=== PATIENT | male | born 1980 | race Caucasian/White ===

== ENCOUNTER 2016-08-17 09:30 | Day surgery (SDC) | payer OTHER ==
[~2016-08-17] VITALS: Ht 177.8 cm; Wt 83.9 kg
[~2016-08-17 09:30] MED LIST: ESOM40CA53 PO; Lactated Ringer's 1,000 ML IV ONE; OMEP20TA24 PO; RANI150T11 PO
[2016-08-17] MEDS ORDERED: Propofol 10,000 mCg/mL 20 mL Inj ONE ×2 (09:31)
[2016-08-17] MEDS ORDERED: Lidocaine PF 1% 30 mL Inj ONE ×2 (09:31)
[2016-08-17 09:47] VITALS: BP 156/94; PULSE 67; RESP 16; O2SAT 96
[2016-08-17] MEDS ORDERED: Lactated Ringer's 1,000 ML IV SCH (11:24)
--- NOTE | 2016-08-17 11:24 | PCM.HPANE ---
Patient Data Date of Service: Aug 17, 2016 Surgeon Admitting Provider: Attending Provider:Manjit Salinas MD Primary Care Physician:Ashleigh Other Provider:Mario Cueto Anesthesia Reason for Visit Abdominal Pain, Gerd Ht/WT & BMI Height (Feet): 5 Height (Inches): 10 Weight (Kilograms): 83.91 Body Mass Index 26.00 Allergies Coded Allergies: No Known Allergies (Verified Allergy, Unknown, 08/16/16) Past Anesthesia History Anesthesia History: Denies:: Abnormal Airway, Anesthesia Reactions, Difficult Intubation, Fam Anesthesia Reaction, Fam Malignant Hypertherm, Malignant Hyperthermia Diabetes History Hx Diabetes?: No MRSA MRSA: No Medications Hypertension Medication: No Home Meds Incl Beta Jenny: No Reported Medications Esomeprazole Magnesium 40 Mg Capsule.dr40 Mg PO DAILY 08/16/16 Discontinued Reported Medications Ranitidine (Zantac)150 Mg [id number] Mg PO BID 08/16/16 Omeprazole Magnesium (Prilosec Otc)20 Mg Tablet.dr20 Mg PO DAILY #1 PKG Ref 0 08/16/16 History HEENT History: Denies:: Abnormal Airway Difficult Intubation Dysphagia Hearing Problem Hx of Heart Problems?: Yes Cardiovascular History: Positive for:: Hypertension (not medicated) Denies:: AICD Atrial Fibrillation Chest Pain Pacemaker Valvular Heart Disease Hx of Respiratory Problem?: No Hx Neurologic Problems?: No Neurological History: Denies:: CVA Hx of GI Problems?: Yes Gastrointestinal History: Positive for:: Gastroesphageal Reflux Hiatal Hernia Rectal Bleeding Denies:: Cirrhosis Diverticulitis Gall Bladder Disease Liver Disease Hx of Problems?: No HX of Peritoneal Dialysis: No Hx Musculoskeletal Problems?: No Musculoskeletal History: Denies:: Fibromyalgia Joint Replacement Psycho Social History: Positive for:: Anxiety (PTSD) Denies:: Hx Depression Hx Surgeries?: Yes (APPY ) Hx Any Other Health Problems?: No Hx Diabetes: No Hx Alcohol Use: Yes (3 TIMES A WEEK) Stop/Bang Treated for Sleep Apnea?: No S-Snoring: Do You Snore Loudly: Yes T-Tired: feel tired, fatigued: No O-Obsered: Observed not breath: No P-Blood Pressure: treated: Yes B- Body Mass Index > 35 kg/m2: No A- Age over 50: No N- Neck Large Circumference: No G- Gender Male: Yes MELISSA Total Score: 3 MELISSA Risk Assessment: High Risk, =/>3 Yes Risk Assessment Category Category 1A: Patient has history of documented sleep apnea, and HAS NOT received any narcotic, sedative or anesthesia administration during this stay. Category 1B: Patient has history of documented sleep apnea, and HAS received any narcotic , sedative or anesthesia administration during this stay Category 2: Patient has SUSPECTED Obstructive Sleep Apnea, and HAS received any narcotic , sedative or anesthesia administration during this stay. Category 3: Patient has SUSPECTED Obstructive Sleep Apnea and HAS NOT received narcotic, sedative or anesthesia administration during this stay. Category 4: Outpatient in Procedural Areas with known sleep apnea or who screen positive for High Risk via the STOP/BANG questionnaire. Exam Exam Vital Signs Vital Signs Date Time Temp Pulse Resp B/P Pulse Ox O2 Delivery O2 Flow Rate FiO2 08/17/16 09:47 36.5 67 16 156/94 96 Room Air General Appearance: Alert, Oriented X3, Cooperative HEENT/AIRWAY: MP 2, Neck Movement (Full), Mouth Opening (Wide) Lungs: Clear to Auscultation, Normal Air Movement Heart: Regular Rate/Rhythm, Normal S1, Normal S2 Plan Impression Patient chart reviewed, patient interviewed and anesthestic plan with risks, benefits, and alternatives discussed, and informed consent obtained. NPO Status: > 2 hours liquids ASA Physical Status: ASA2 Mod Systemic Disease Anesthetic Plan: MAC Bene/Risks/Altern/Consents: Yes HP Complete Prior to Induction: Yes Angel Mike MD Aug 17, 2016 11:24
[2016-08-17] MEDS ORDERED: Ondansetron 2 mg/mL 2 mL Inj IVPUSH PRN (11:25)
[2016-08-17] MEDS ORDERED: MetoCLOpramide 5 mg/mL 2 mL Inj IVPUSH PRN (11:25)
--- NOTE | 2016-08-17 11:50 | PCM.ENDEGD ---
EGD Date of Service: Aug 17, 2016 Physician Manjit Salinas MD Pre Procedure Diagnosis: Abdominal pain Post Procedure Dx & Findings: Possible Stewart's esophagus gastritis with erosions Procedure Esophagogastroduodenoscopy PROCEDURE IN DETAIL: After proper sedation, Olympus video endoscope was inserted into patient's mouth and esophagus was successfully intubated. Scope introduced esophagus. Esophagus showed normal shiny whitish mucosa consistent with squamous cell component. Z line was not intact at 40 cm cm from the incisors. There was a little over 1 cm length of salmon-colored mucosa protruding from the Z line. 4 quadrant biopsies obtained. No ulcer or mass erosion noted. Scope further advanced to the stomach. Stomach showed normal shiny mucosa with normal appearing rugae folds without any ulcer mass erosion up to the body of the stomach. However in the antrum, there were some streaks of redness and edema and nodular mucosa and in the center of the nodule, minute erosions noted. Biopsies obtained at the nodules and gastritis. Cardia fundus body antrum pylorus were all visualized. Retroflexion was done. Stomach was easily inflated and deflatable using air. Scope further events to the distal duodenum. Duodenum revealed normal villous structures with normal appearing folds without any mass ulcer erosion. Random biopsies 5 obtained for rule out celiac. Impression Possible Stewart's esophagus status post 4 quadrant biopsy length little over a centimeter. Gastritis with erosions. Recommendation Await biopsies Presedation Assessment Risks and Benefits Informed consent was obtained from the patient after all risks and benefits including but not limited to drug reaction, infection, pain, bleeding, perforation, as well as alternatives were discussed. Patient monitoring Continuous pulse oximetry, cardiac monitoring, blood pressure monitoring, IV access, and oxygen at 2L per nasal cannula. Complications There were no periprocedural complications identified. Post Procedure Plan Post Procedure Recommendations 1. Restrict activities today. 2. Resume normal activities in the morning. 3. Resume medications. 4. GERD behavioral modification: - Avoid fatty, acidic, spicy, large meals - Do not lie down after meals - Do not eat or drink anything for at least 2 1/2 hours before going to bed at night - Discontinue tobacco and alcohol - Decrease or avoid caffeine - Avoid chocolate and mints - Decrease weight - Avoid aspirin and non steroidal anti-inflammatory agents (NSAID) such as Aleve, Advil, Mobic, Naproxen, Ibuprofen, etc 5. Add proton pump inhibitor. Take 30 minutes before 1st meal of the day. 6. Patient informed of normal post procedure side effects as bloating, drowsiness, blood streaking in the stool 7. If gastric biopsy reveal H.pylori, continue with appropriate treatment 8. If small bowel biopsy reveals celiac, continue with appropriate treatment 9. Please don't hesitate to call me with any questions Manjit Salinas MD Aug 17, 2016 11:50
--- NOTE | 2016-08-17 12:14 | PCM.ENDCOL ---
Colonoscopy Date of Service: Aug 17, 2016 Physician Manjit Salinas MD Pre Procedure Diagnosis: Abdominal pain Post Procedure Dx & Findings: Terminal ileum erosions Procedure Colonoscopy PROCEDURE IN DETAIL: Prep adequate Withdrawal time 13 minutes After unremarkable rectal examination the Olympus video colonoscope was inserted patient's anal canal and was advanced to cecum. Landmarks were identified including the ileocecal valve and appendiceal orifice. Scope advanced further to the terminal ileum. We advanced 10 cm. Overall, visualized mucosa showed healthy. However, intermittently we saw some redness swelling and central erosion on few spots. These were millimeter in size. But surrounding inflammation was up to 5 mm. Biopsies obtained using forceps. Scope was withdrawn systematically. Visualized colonic mucosa showed healthy shiny mucosa with normal healthy- appearing vasculature. In the rectum retroflexion was done which showed hemorrhoids. Anal canal was inspected carefully on the way out and hemorrhoids noted. Impression Terminal ileum erosions Hemorrhoids Recommendation Await pathology. Patient should go back [facility] the [facility]. If he wishes to follow up with us, these have been referral for GI clinic for workup of abdominal pain. Presedation Assessment Risks and Benefits Informed consent was obtained from the patient after all risks and benefits including but not limited to drug reaction, infection, pain, bleeding, perforation, as well as alternatives were discussed. Patient monitoring Continuous pulse oximetry, cardiac monitoring, blood pressure monitoring, IV access, and oxygen at 2L per nasal cannula. Complications There were no periprocedural complications identified. Post Procedure Plan Post Procedure Recommendations 1. Restrict activities today. 2. Resume normal activities in the morning. 3. Resume medications. 4. Patient informed of normal post procedure side effects as bloating, drowsiness, blood streaking in the stool. 5. average risk CRCS. If colon polyps come back as: -Hyperplastic- can repeat colonoscopy in 10 years -Tubular adenoma- repeat colonoscopy in 5 years -Tubulovillous/villous adenoma- repeat colonoscopy in 3 years -If any dysplasia- return to clinic as soon as possible 6. Please don't hesitate to call me with any questions. Manjit Salinas MD Aug 17, 2016 12:14
[2016-08-17 12:15] VITALS: BP 131/79; PULSE 88; RESP 14; O2SAT 95
--- NOTE | 2016-08-17 12:22 | PCM.ANEP1 ---
Post Anesthesia Phase 1 PACU Phase 1 Assessment Date of Service: Aug 17, 2016 Vital Signs Vital Signs Date Time Temp Pulse Resp B/P Pulse Ox O2 Delivery O2 Flow Rate FiO2 08/17/16 12:15 36.4 88 14 131/79 95 Room Air 08/17/16 09:47 36.5 67 16 156/94 96 Room Air Anesthetic Administered: MAC Level of Alertness: Sleeping, hard to arouse LLANOS's with Equal Strength: Yes Pain: No Nausea or Vomiting: No Lungs: Normal Air Movement Angel Mike MD Aug 17, 2016 12:22
[2016-08-17 12:25] VITALS: BP 162/103; PULSE 86; RESP 14; O2SAT 98
[2016-08-17 12:35] VITALS: BP 168/109; PULSE 85; RESP 16; O2SAT 100
--- NOTE | 2016-08-17 12:53 | PCM.ANEP2 ---
Post Anesthesia Evaluation ASA/CMS Post Anesthesia Date of Service: Aug 17, 2016 VS in Patient's Normal Range?: Yes Resp Stable; Airway Patent?: Yes CV Function & Hydration Stable: Yes Mental Status Recovered?: Yes Pain control Satisfactory?: Yes N/V Control Satisfactory?: Yes Angel Mike MD Aug 17, 2016 12:53
--- NOTE | 2016-08-18 15:51 | PATH ---
SURGICAL PATHOLOGY Attending Physician:Manjit Sailnas M.D. CASE STATUS: Signed Out PATIENT NAME: FLOYD GAINES PID: [id number] : 1980 DATE COLLECTED:08/17/2016 21:50 SPECIMEN: 1: Duodenum, Biopsy 2: Gastric, Biopsy 3: Esophagus, Biopsy 4: Ileum, Biopsy CLINICAL HISTORY: 1). DUODENAL BIOPSY 2). GASTRIC BIOPSY 3). DISTAL ESOPHAGEAL BIOPSY 4). TERMINAL ILEUM BIOPSY FINAL DIAGNOSIS: 1.DUODENAL BIOPSY: FRAGMENTS OF NORMAL SMALL BOWEL MUCOSA. Normal delicate mucosal villi present. Negative for significant inflammation, dysplasia and malignancy. 2.GASTRIC BIOPSY: FRAGMENTS OF ANTRAL MUCOSA, NEGATIVE FOR SIGNFICANT INFLAMMATION. Negative for evidence of Helicobacter. Negative for intestinal metaplasia. Negative for dysplasia and malignancy. 3.DISTAL ESOPHAGUS BIOPSY: SQUAMOUS MUCOSA AND GASTRIC CARDIA-TYPE MUCOSA CHRONICALLY INFLAMED WITH REACTIVE EPITHELIAL CHANGES. Negative for specialized metaplasia of Stewart' s esophagus. Negative for dysplasia and malignancy. Eosinophils are not increased. 4.TERMINAL ILEUM BIOPSY: FRAGMENTS OF NORMAL-APPEARING TERMINAL ILEUM MUCOSA. Negative for granulomas. Negative for significant inflammation, dysplasia and malignancy. ICD10 code K21.0 GROSS DESCRIPTION: The specimen is received in four formalin filled containers labeled with the patient's name. 1). The specimen is sublabeled "duodenum" and consists of 2 portions of tissue which aggregate to 0.4 x 0.4 x 0.3 CM. The specimen is entirely submitted in cassette 1A. 2). The specimen is sublabeled "gastric" and consists of 3 portions of tissue which aggregate to 0.3 x 0.3 x 0.2 CM. The specimen is entirely submitted in cassette 2A. 3). The specimen is sublabeled "distal esophagus" and consists of 4 portions of tissue which aggregate to 0.3 x 0.3 x 0.2 CM. The specimen is entirely submitted in cassettes 3A. 4). The specimen is sublabeled "terminal ileum" and consists of 2 portions of tissue which aggregate to 0.3 x 0.3 x 0.2 CM. The specimen is entirely submitted in cassette 4A. 08/17/2016 DAC MICRO DESCRIPTION: See diagnosis. ICD-9 CODES: CPT CODES: 1: 46230 2: 07942 3: 22866 4: 14979 Electronically Signed Out Bill Sanchez MD [facility] [address], [place] [address] Technical component performed at [facility], [facility] [address], [place], [address]
== END 2016-08-17 23:59 | disposition home or self-care (01) ==
LOC: END 09:30
PROVIDERS: ATTEND Internal Medicine
DX: K63.3 Ulcer of intestine (principal); K64.8 Other hemorrhoids; K21.0 Gastro-esophageal reflux disease with esophagitis; K29.51 Unspecified chronic gastritis with bleeding; F43.10 Post-traumatic stress disorder, unspecified; Z87.820 Personal history of traumatic brain injury
CPT/HCPCS: 43239; 45380; J7120